=== PATIENT | female | born 1990 | race African-American/Black ===

== ENCOUNTER 2017-08-07 14:57 | Emergency (ER) | payer OTHER ==
[2017-08-07 15:01] VITALS: BP 140/77; BMI 22.6
--- NOTE | 2017-08-07 15:28 | DR.SOBA ---
HPI - Time Seen Time seen: 15:30 - Primary Care Physician Primary Care Physician: DANNY - HPI Comment HPI Comment: GETTING WORSE. NO HISTORY OF ASTHMA. - Complaints Chief Complaint Doctors Comments: SOB FOR FEW HOURS. Chief Complaint:: PT C/O SOB AND DIZZINESS. PT STATES SHE WAS AT WORK AND SHE ALL OF A SUDDEN WAS SHORT OF BREATH AND DIZZY PT STATES SHE FEELS IF SHE IS GOING TO PASS OUT - Reviewed Nurses Notes Reviewed: Yes - Source History Provided: Patient - Mode of Arrival Mode of Arrival: Ambulatory - Timing Onset of Chief Complaint: 08/07/17 - Duration Duration: Hours - Context Onset:: At Rest PE Risk Factors:: None History of:: None Currently on:: Neither Prehospital Care:: None - Modifying Factors Worsens:: Nothing Improves:: Nothing - Associated Signs and Symptoms Associated Signs and Symptoms: None - If Cough Cough: None PMH - PMH Past Medical History: No Past Surgical History: Yes Surgical History: - Family History History of Family Medical Conditions: Yes Family Medical History: Diabetes Mellitus, Hypertension - Social History Does patient currently use any type of tobacco product: Yes Have you used tobacco products in the last 12 months: Yes Type of Tobacco Use: Cigarettes Does any household member use tobacco: Yes Alcohol Use: None Do you use any recreational Drugs:: No Lives With: Family Lives Where: Home - infectious screening In the last 2 months have you had wt loss of >10#?: NO Have you had fever, night sweats or hemotysis?: No Have you traveled outside the country in the last 6 months?: No Isolation: Standard ROS - Review of Systems Constitutional: No Symptoms Reported Eyes: No Symptoms Reported ENTM: No Symptoms Reported Respiratoy: Short of Breath Cardiovascular: No Symptoms Reported Gastrointestinal/Abdominal: No Symptoms Reported Genitourinary: No Symptoms Reported Neurological: No Symptoms Reported Musculoskeletal: No Symptoms Reported Integumentary: No Symptoms Reported Hematologic/Lymphatic: No Symptoms Reported Endocrine: No Symptoms Reported All Other Systems: Reviewed and Negative PE - Vital Signs Vitals: Temperature 97.9 F Pulse Rate 96 Respiratory Rate 20 Blood Pressure 140/77 O2 Sat by Pulse Oximetry 100 - General Limitations: No Limitations General Appearance: Alert - Head Head Exam: Normal Inspection - Eyes Eye exam: Normal Appearance - ENT ENT Exam: Normal External Ear Exam - Neck Neck Exam: Trachea Midline - Chest Chest Inspection: Symmetric Chest Wall Rise - Respiratory Respiratory Exam: Normal Lung Sounds Bilat Respiratory Exam: Bilateral Clear to Auscultation - Cardiovascular Cardiovascular Exam: Regular Rate, Normal Rhythm, Normal Heart Sounds - Abdominal Exam Abdominal Exam: Normal Bowel Sounds, Soft. negative: Tenderness - Extremities Extremities Exam: Normal Inspection - Back Back Exam: Normal Inspection - Neurologic Neurological Exam: Alert, Oriented X3, CN II-XII Intact, Normal Gait, Reflexes Normal. negative: Motor Sensory Deficit - Psychiatric Psychiatric Exam: Anxious - Skin Skin Exam: Normal Color MDM - Differential Diagnosis Differential Diagnosis: Bronchitis, Pneumonia, Pneumothorax, Sinusitis, URI Course - Treatment Treatment: SEE ORDERS. - Education/Counseling Education/Counseling: Patient, Education Educated On: Diagnosis, Needs for Follow Up ROR - Labs Reviewed Laboratory Results Reviewed?: Yes Result Diagrams: 08/07/17 15:36 08/07/17 15:36 Laboratory: WBC 8.4 X10^3/uL (3.6-10.0) 08/07/17 15:36 RBC 3.68 X10^6/uL (3.5-5.4) 08/07/17 15:36 Hgb 10.7 g/dL (12.0-16.0) L 08/07/17 15:36 Hct 32.2 % (36.0-47.0) L 08/07/17 15:36 MCV 87.4 fL (80.0-100.0) 08/07/17 15:36 MCH 29.0 pg (27.0-34.0) 08/07/17 15:36 MCHC 33.2 g/dL (33.0-35.0) 08/07/17 15:36 RDW 15.1 % (11.6-16.5) 08/07/17 15:36 Plt Count 407 X10^3/uL (150.0-450.0) 08/07/17 15:36 MPV 7.2 fL (7.4-11.0) L 08/07/17 15:36 Neut % (Auto) 50.4 % (42.0-75.0) 08/07/17 15:36 Lymph % (Auto) 39.5 % (21.0-51.0) 08/07/17 15:36 [place] % (Auto) 5.9 % (0.0-13.0) 08/07/17 15:36 Eos % (Auto) 3.5 % (0.9-2.9) H 08/07/17 15:36 Baso % (Auto) 0.7 % (0.2-1.0) 08/07/17 15:36 Neut # (Auto) 4.2 x10^3/uL (2.2-4.8) 08/07/17 15:36 Lymph # (Auto) 3.3 X10^3/uL (1.3-2.9) H 08/07/17 15:36 [place] # (Auto) 0.5 x10^3/uL (0.3-0.8) 08/07/17 15:36 Eos # (Auto) 0.3 x10^3/uL (0.0-0.2) H 08/07/17 15:36 Baso # (Auto) 0.1 X10^3/uL (0.0-0.1) 08/07/17 15:36 Absolute Nucleated RBC 0.0 /100WBC 08/07/17 15:36 Sodium 141 mmol/L (136-145) 08/07/17 15:36 Corrected Sodium TNP 08/07/17 15:36 Potassium 3.7 mmol/L (3.5-5.1) 08/07/17 15:36 Chloride 106 mmol/L (98-107) 08/07/17 15:36 Carbon Dioxide 27.8 mmol/L (21-32) 08/07/17 15:36 BUN 9 mg/dL (7-18) 08/07/17 15:36 Creatinine 0.78 mg/dL (0.55-1.02) 08/07/17 15:36 Est GFR (MDRD) Af Amer > 60 (>60) 08/07/17 15:36 Est GFR (MDRD) Non-Af > 60 (>60) 08/07/17 15:36 Glucose 63 mg/dL (65-99) L 08/07/17 15:36 Calcium 8.1 mg/dL (8.5-10.1) L 08/07/17 15:36 Corrected Calcium TNP 08/07/17 15:36 Total Bilirubin 0.10 mg/dL (0.2-1.0) L 08/07/17 15:36 AST 14 Units/L (15-37) L 08/07/17 15:36 ALT 19 Units/L (12-78) 08/07/17 15:36 Alkaline Phosphatase 74 Units/L (46-116) 08/07/17 15:36 Total Protein 7.5 g/dL (6.4-8.2) 08/07/17 15:36 Albumin 3.6 g/dL (3.4-5.0) 08/07/17 15:36 Globulin 3.9 g/dL (2.5-4.5) 08/07/17 15:36 Albumin/Globulin Ratio 0.9 Ratio (1.1-2.1) L 08/07/17 15:36 - XRAY XRAY Interpreted by: Radiologist XRAY Findings: REPORT DISCUSS WITH PATIENT - Diagnosis Discharge Problem: Dyspnea Qualifiers: Dyspnea type: shortness of breath Qualified Code(s): R06.02 - Shortness of breath - Discharge Plan Disposition: 01 HOME, SELF-CARE Condition: Stable - Follow ups/Referrals Follow ups/Referrals: [facility],None [Primary Care Provider] - 08/08/17 MAYRA COON [STAFF PHYSICIAN] - 08/08/17 - Instructions Instructions: Shortness of Breath, Adult, [id number]
[2017-08-07 15:47] LABS: BASOPHILS # (AUTO) 0.1 X10^3/uL (0.0-0.1); BASOPHILS % (AUTO) 0.7 % (0.2-1.0); EOSINOPHILS # (AUTO) 0.3 x10^3/uL (0.0-0.2); EOSINOPHILS % (AUTO) 3.5 % (0.9-2.9); HEMATOCRIT 32.2 % (36.0-47.0); HEMOGLOBIN 10.7 g/dL (12.0-16.0); LYMPHOCYTES # (AUTO) 3.3 X10^3/uL (1.3-2.9); LYMPHOCYTES % (AUTO) 39.5 % (21.0-51.0); MEAN CORPUSCULAR HGB CONC 33.2 g/dL (33.0-35.0); MEAN CORPUSCULAR VOLUME 87.4 fL (80.0-100.0); MEAN PLATELET VOLUME 7.2 fL (7.4-11.0); MONOCYTES # (AUTO) 0.5 x10^3/uL (0.3-0.8); MONOCYTES % (AUTO) 5.9 % (0.0-13.0); NEUTROPHILS # (AUTO) 4.2 x10^3/uL (2.2-4.8); NEUTROPHILS % (AUTO) 50.4 % (42.0-75.0); PLATELET COUNT 407 X10^3/uL (150.0-450.0); RED BLOOD COUNT 3.68 X10^6/uL (3.5-5.4); RED CELL DISTRIBUTION WIDTH 15.1 % (11.6-16.5); WHITE BLOOD COUNT 8.4 X10^3/uL (3.6-10.0)
--- NOTE | 2017-08-07 15:59 | RAD ---
Examination: Portable AP chest History: SOB and dizziness Findings: Normal transverse heart diameter with grossly clear lungs and pleural spaces. Metallic cl othing artifacts are present on both sides of the chest. Impression: No acute process identified. Reported By:
[2017-08-07 16:00] LABS: ALANINE AMINOTRANSFERASE 19 Units/L (12-78); ALBUMIN 3.6 g/dL (3.4-5.0); ALKALINE PHOSPHATASE 74 Units/L (46-116); ASPARTATE AMINO TRANSFERASE 14 Units/L (15-37); BLOOD UREA NITROGEN 9 mg/dL (7-18); CALCIUM 8.1 mg/dL (8.5-10.1); CARBON DIOXIDE 27.8 mmol/L (21-32); CHLORIDE 106 mmol/L (98-107); CREATININE 0.78 mg/dL (0.55-1.02); SODIUM 141 mmol/L (136-145); TOTAL PROTEIN 7.5 g/dL (6.4-8.2); eGFR BLACK RACES > 60 (>60); eGFR NON BLACK RACES > 60 (>60)
== END 2017-08-07 17:00 | disposition home or self-care (01) ==
LOC: ER 15:04
DX: R06.02 Shortness of breath (principal)
CPT/HCPCS: 36415; 71045; 80053; 85025; 99282